=== PATIENT | male | born 1985 ===

== ENCOUNTER 2020-09-19 15:06 | Outpatient (CLI) | payer BC, SELFPAY ==
[2020-09-20 19:43] LABS: SARS-CoV-2 RNA PCR Negative
== END 2020-09-19 15:07 | disposition home or self-care (01) ==
LOC: CHSLAB 15:10
PROVIDERS: PCP Internal Medicine; Visit Provider Internal Medicine
DX: Z20.822 Contact with and (suspected) exposure to COVID-19 (principal)
CPT/HCPCS: C9803; U0003; U0005

== ENCOUNTER 2021-11-26 14:55 | Outpatient (CLI) | payer OTHER, SELFPAY ==
--- NOTE | ~2021-11-26 | XR_ITS ---
EXAMINATION: XR hand LT min 3V INDICATION: Left hand pain TECHNIQUE: Three views of the left hand are obtained. COMPARISON: None available FINDINGS: Bone alignment is normal. There is no fracture. There is soft tissue swelling of the first finger. The joint spaces are normal. IMPRESSION: 1. Soft tissue swelling of the first finger without acute osseous abnormality identified. Reviewed, dictated and finalized at location B. IMPRESSION: 1. Soft tissue swelling of the first finger without acute osseous abnormality i dentified.
== END 2021-11-26 14:56 | disposition home or self-care (01) ==
LOC: CHSIMG 14:59
PROVIDERS: PCP Internal Medicine; Visit Provider Internal Medicine
DX: S69.92XA Unspecified injury of left wrist, hand and finger(s), initial encounter (principal)
CPT/HCPCS: 73130

== ENCOUNTER 2022-12-01 18:03 | Outpatient (CLI) | payer OTHER, SELFPAY ==
[2022-12-01 18:53] LABS: SARS-CoV-2 RNA PCR Negative (Negative)
== END 2022-12-01 18:04 | disposition home or self-care (01) ==
PROVIDERS: PCP Internal Medicine; Visit Provider Internal Medicine
DX: J06.9 Acute upper respiratory infection, unspecified (principal); Z20.822 Contact with and (suspected) exposure to COVID-19
CPT/HCPCS: U0003; U0005